=== PATIENT | female | born 1970 | race Two or more races ===

== ENCOUNTER 2018-04-29 12:12 | Outpatient (CLI) | payer OTHER ==
[~2018-04-29 12:12] MED LIST: ABILIFY5 MG PO; APETIGEN PLUS120 ML PO; LEVSIN/SL0.125 MG PO; PROPRANOLOL HCL20 MG; RISPERDAL0.25 MG; SYNTHROID100 MCG PO; TOPROL XL50 M1; ZANTAC150 M3 PO
== END 2018-04-29 12:14 | disposition home or self-care (01) ==
LOC: SONOGRAMA 12:12
DX: N92.5 Other specified irregular menstruation (principal)

== ENCOUNTER → 2018-07-27 | Outpatient (CLI) | payer OTHER | END | disposition home or self-care (01) | LOC: MAMO-SONO 09:37 | DX: Z12.31 Encounter for screening mammogram for malignant neoplasm of breast (principal); Z87.898 Personal history of other specified conditions; C50.911 Malignant neoplasm of unspecified site of right female breast; C50.912 Malignant neoplasm of unspecified site of left female breast ==

== ENCOUNTER 2019-04-21 08:37 | Outpatient (CLI) | payer OTHER | END 2019-04-21 08:40 | disposition home or self-care (01) | LOC: NUCLEAR 08:37 | DX: M81.0 Age-related osteoporosis without current pathological fracture (principal) ==

== ENCOUNTER 2019-08-09 09:14 | Outpatient (CLI) | payer OTHER | END 2019-08-09 14:59 | disposition home or self-care (01) | LOC: MAMO-SONO 09:14 | DX: Z12.31 Encounter for screening mammogram for malignant neoplasm of breast (principal); Z87.898 Personal history of other specified conditions ==

== ENCOUNTER 2020-08-30 10:11 | Outpatient (CLI) | payer OTHER | END 2020-08-30 15:39 | disposition home or self-care (01) | LOC: MAMO-SONO 10:11 | PROVIDERS: ATTEND Internal Medicine Sports Medicine | DX: N60.01 Solitary cyst of right breast (principal); Z12.31 Encounter for screening mammogram for malignant neoplasm of breast; R10.2 Pelvic and perineal pain; D25.9 Leiomyoma of uterus, unspecified ==

== ENCOUNTER 2021-06-22 08:00 | Outpatient (CLI) | payer OTHER | END 2021-06-22 08:30 | disposition home or self-care (01) | LOC: PPH VACUNA 08:00 | PROVIDERS: ATTEND Emergency Medicine Pediatric Emergency Medicine | DX: Z23 Encounter for immunization (principal) ==

== ENCOUNTER 2021-11-28 09:29 | Outpatient (CLI) | payer OTHER | END 2021-11-28 09:36 | disposition home or self-care (01) | LOC: MAMO-SONO 09:29 | PROVIDERS: ATTEND Internal Medicine Sports Medicine | DX: Z12.31 Encounter for screening mammogram for malignant neoplasm of breast (principal) ==

== ENCOUNTER 2023-03-03 09:09 | Outpatient (CLI) | payer OTHER | END 2023-03-03 09:23 | disposition home or self-care (01) | LOC: MAMO-SONO 09:09 | PROVIDERS: ATTEND Internal Medicine Sports Medicine | DX: Z12.31 Encounter for screening mammogram for malignant neoplasm of breast (principal); Z86.018 Personal history of other benign neoplasm ==

== ENCOUNTER 2024-06-02 08:40 | Outpatient (CLI) | payer OTHER | END 2024-06-02 08:47 | disposition home or self-care (01) | LOC: MAMO-SONO 08:40 | PROVIDERS: ATTEND Internal Medicine Sports Medicine | DX: Z12.31 Encounter for screening mammogram for malignant neoplasm of breast (principal); Z12.39 Encounter for other screening for malignant neoplasm of breast ==

== ENCOUNTER 2025-06-08 08:41 | Outpatient (CLI) | payer OTHER | END 2025-06-08 08:44 | disposition home or self-care (01) | LOC: MAMO-SONO 08:41 | PROVIDERS: ATTEND Internal Medicine Sports Medicine | DX: Z12.39 Encounter for other screening for malignant neoplasm of breast (principal); Z12.31 Encounter for screening mammogram for malignant neoplasm of breast ==